=== PATIENT | male | born 1965 | race Caucasian/White ===

== ENCOUNTER 2016-12-22 10:00 | Day surgery (SDC) | payer OTHER ==
[2016-12-21 09:28] LABS: HEMOGLOBIN 16.1 g/dL (13.7-18.0); WHITE BLOOD COUNT 6.6 x10^3/uL (3.4-10)
[2016-12-21 09:41] LABS: ASPARTATE AMINO TRANSFERASE 15 U/L (15-37); BLOOD UREA NITROGEN 23 mg/dL (7-18)
[~2016-12-22] VITALS: Ht 205.7 cm; Wt 125.0 kg
[~2016-12-22 10:00] MED LIST: AMIO200T7 PO; ASPI-496 PO; ATENOLOL PO; CALCIUM PO; CLOP75TA PO; MULT-412 PO; SIMV40TA3 PO; WARF5TAB7 PO
[2016-12-22] MEDS ORDERED: FENTANYL PF 100 MCG/2ML ONE (12:02)
[2016-12-22] MEDS ORDERED: MIDAZOLAM 1 MG/ML, 5ML ONE (12:02)
== END 2016-12-22 14:22 | disposition home or self-care (01) ==
LOC: CACL 10:00
PROVIDERS: ATTEND Internal Medicine Cardiovascular Disease
DX: I48.91 Unspecified atrial fibrillation (principal); I10 Essential (primary) hypertension; E78.5 Hyperlipidemia, unspecified; G47.33 Obstructive sleep apnea (adult) (pediatric); Z79.01 Long term (current) use of anticoagulants
CPT/HCPCS: 36415; 71020; 80053; 80061; 84436; 84443; 84481; 85025; 85610; 92960; 93005; 99156; 99157; J2250; J3010

== ENCOUNTER → 2017-01-18 | Outpatient (CLI) | payer OTHER | END | disposition home or self-care (01) | LOC: CVU 13:07 | PROVIDERS: ATTEND Nurse Practitioner Family | DX: I05.0 Rheumatic mitral stenosis (principal); I31.3 Pericardial effusion (noninflammatory); Q87.40 Marfan syndrome, unspecified; Z95.2 Presence of prosthetic heart valve | CPT/HCPCS: 93306 ==

== ENCOUNTER → 2018-07-01 | Outpatient (CLI) | payer OTHER ==
[~2018-07-01] MED LIST changes: +WARF-36 PO; -WARF5TAB7 PO
== END | disposition home or self-care (01) ==
LOC: CVU 09:33
PROVIDERS: ATTEND Internal Medicine Cardiovascular Disease
DX: I08.2 Rheumatic disorders of both aortic and tricuspid valves (principal); I10 Essential (primary) hypertension; E78.5 Hyperlipidemia, unspecified; Z95.2 Presence of prosthetic heart valve
CPT/HCPCS: 93306

== ENCOUNTER 2018-09-15 20:29 | Emergency (ER) | payer OTHER ==
[~2018-09-15] VITALS: Ht 203.2 cm; Wt 131.9 kg
[2018-09-15] MEDS ORDERED: OMNIPAQUE 350 MG/ML, 100ML BOTTLE ONE (21:00)
[2018-09-15 21:10] LABS: BASOPHILS # (AUTO) 0.01 x10^3/uL (0-0.1); BASOPHILS % (AUTO) 0 % (0-1); EOSINOPHILS # (AUTO) 0.22 x10^3/uL (0-0.4); EOSINOPHILS % (AUTO) 5 % (1-7); LYMPHOCYTES # (AUTO) 0.94 x10^3/uL (1-3.4); LYMPHOCYTES % (AUTO) 21 % (22-44); MD NO; MEAN CORPUSCULAR HGB CONC 33.1 g/dL (33.2-36.2); MEAN CORPUSCULAR VOLUME 90.5 fL (81-97); MEAN PLATELET VOLUME 8.2 fL (7.4-10.4); MONOCYTES # (AUTO) 0.42 x10^3/uL (0.2-0.8); MONOCYTES % (AUTO) 9 % (2-9); NEUTROPHILS # (AUTO) 2.99 x10^3/uL (1.8-6.8); NEUTROPHILS % (AUTO) 65 % (42-75); PLATELET COUNT 224 x10^3/uL (130-400); RED BLOOD COUNT 4.81 x10^6/uL (4.38-5.82); RED CELL DISTRIBUTION WIDTH 14.5 % (9.4-14.8)
[2018-09-15 21:20] LABS: INTERNATIONAL NORMALIZED RATIO 3.16 (0.93-1.1); PROTHROMBIN TIME 31.7 Seconds (9.6-11.5)
[2018-09-15 21:23] LABS: CHLORIDE 107 mmol/L (98-107)
[2018-09-15 21:24] LABS: ALANINE AMINOTRANSFERASE 32 U/L (12-78); ALBUMIN 3.9 g/dL (3.4-5.0); ANION GAP 8 mmol/L (5-15); CALCIUM 8.5 mg/dL (8.5-10.1); CREATININE 1.13 mg/dL (0.7-1.3)
[2018-09-15 21:28] LABS: ALKALINE PHOSPHATASE 72 U/L (45-117); BILIRUBIN,TOTAL 0.2 mg/dL (0.2-1.0); TROPONIN I < 0.015 ng/mL (0.000-0.045)
[2018-09-15 23:38] VITALS: BP 126/75
== END 2018-09-15 23:40 | disposition home or self-care (01) ==
LOC: ED 21:14 → UNDOADMIN 22:50 → EDIP 22:50 → ED 23:40
DX: I66.29 Occlusion and stenosis of unspecified posterior cerebral artery (principal); R20.2 Paresthesia of skin
CPT/HCPCS: 36415; 70450; 70496; 70498; 80053; 84484; 85025; 85610; 93005; 99284; Q9967

== ENCOUNTER 2018-10-03 12:08 | Outpatient (CLI) | payer OTHER ==
[2018-10-03] MEDS ORDERED: OMNIPAQUE 350 MG/ML, 100ML BOTTLE ONE (15:31)
== END 2018-10-03 23:59 | disposition home or self-care (01) ==
LOC: CFH 12:08
PROVIDERS: ATTEND Internal Medicine
DX: I71.2 Thoracic aortic aneurysm, without rupture (principal)
CPT/HCPCS: 71275; Q9967

== ENCOUNTER 2018-12-12 14:32 | Outpatient (CLI) | payer OTHER | END 2018-12-12 23:59 | disposition home or self-care (01) | LOC: CVU 14:32 | PROVIDERS: ATTEND Internal Medicine Cardiovascular Disease | DX: I08.3 Combined rheumatic disorders of mitral, aortic and tricuspid valves (principal); I11.9 Hypertensive heart disease without heart failure | CPT/HCPCS: 93306 ==

== ENCOUNTER 2019-02-14 17:17 | Emergency (ER) | payer OTHER ==
[~2019-02-14] VITALS: Ht 205.7 cm; Wt 127.7 kg
[2019-02-14] MEDS ORDERED: SODIUM CHLORIDE FLUSH 10ML SYR IVF ONE (17:30)
[2019-02-14 17:48] LABS: BASOPHILS # (AUTO) 0.02 x10^3/uL (0-0.1); BASOPHILS % (AUTO) 0 % (0-1); EOSINOPHILS # (AUTO) 0.18 x10^3/uL (0-0.4); EOSINOPHILS % (AUTO) 4 % (1-7); LYMPHOCYTES # (AUTO) 1.04 x10^3/uL (1-3.4); LYMPHOCYTES % (AUTO) 23 % (22-44); MD NO; MEAN CORPUSCULAR HGB CONC 33.1 g/dL (33.2-36.2); MEAN CORPUSCULAR VOLUME 90.7 fL (81-97); MEAN PLATELET VOLUME 8.1 fL (7.4-10.4); MONOCYTES # (AUTO) 0.56 x10^3/uL (0.2-0.8); MONOCYTES % (AUTO) 12 % (2-9); NEUTROPHILS # (AUTO) 2.81 x10^3/uL (1.8-6.8); NEUTROPHILS % (AUTO) 61 % (42-75); PLATELET COUNT 230 x10^3/uL (130-400); RED BLOOD COUNT 5.33 x10^6/uL (4.38-5.82); RED CELL DISTRIBUTION WIDTH 14.8 % (9.4-14.8)
[2019-02-14 17:59] LABS: INTERNATIONAL NORMALIZED RATIO 3.2 (0.93-1.1); PROTHROMBIN TIME 32.1 Seconds (9.6-11.5)
[2019-02-14 18:00] LABS: ALANINE AMINOTRANSFERASE 27 U/L (12-78); ALBUMIN 4.1 g/dL (3.4-5.0); ANION GAP 4 mmol/L (5-15); CALCIUM 8.7 mg/dL (8.5-10.1); CHLORIDE 110 mmol/L (98-107); CREATININE 1.17 mg/dL (0.7-1.3)
--- NOTE | 2019-02-14 18:00 | NUR ---
PRESENT WITH FEELING OF PALPITTIONS X 18 HOURS. REPORTS HX OF AFIB WITH NEED FOR CHEMICAL AND ELECTRICAL CARDIOVERSION. tOOK PM DOSE OF ATENOLOL/AMIODARONE AND COUMADIN. APPEARS WELL. HR IRREGULAR BUT RATE 70-85. B/P WNL. DENIES SOB/NAUSEA. ONLY REPORTS IRREGULAR PALPITATIONS PROVIDER TO BEDSIDE. TO AVOID PIV RATE CONTROLLED AND PATIENT ALREADY ON CORRECT MEDICATIONS. 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
[2019-02-14 18:04] LABS: ALKALINE PHOSPHATASE 80 U/L (45-117); BILIRUBIN,TOTAL 0.4 mg/dL (0.2-1.0); TOTAL PROTEIN 7.6 g/dL (6.4-8.2); TROPONIN I < 0.015 ng/mL (0.000-0.045)
--- NOTE | 2019-02-14 18:08 | NUR ---
REPORT TO TONIA NICOLAS FOR LUNCH COVERAGE
[2019-02-14] MEDS ORDERED: PROPOFOL 10 MG/ML, 20ML IVPush ONE (18:30)
[2019-02-14] MEDS ORDERED: ONDANSETRON 2MG/ML, 2ML ONE (19:02)
[2019-02-14] MEDS ORDERED: PROPOFOL 10 MG/ML, 20ML ONE (19:02)
--- NOTE | 2019-02-14 19:14 | NUR ---
post cardioversion ecg obtained
[2019-02-14] MEDS ORDERED: ONDANSETRON 2MG/ML, 2ML IVPush ONE (19:30)
[2019-02-14 20:00] VITALS: BP 122/61
--- NOTE | 2019-02-14 20:03 | NUR ---
TASK RN, ASSISTING PRIMARY WITH DISCHARGE. PT DISCHARGED HOME WITH FAMILY, ALL QUESTIONS ANSWERED.
== END 2019-02-14 20:04 | disposition home or self-care (01) ==
LOC: ED 20:00
DX: I48.0 Paroxysmal atrial fibrillation (principal); I48.91 Unspecified atrial fibrillation; Z86.73 Personal history of transient ischemic attack (TIA), and cerebral infarction without residual deficits
CPT/HCPCS: 36415; 71045; 80053; 84443; 84484; 85025; 85610; 85730; 92960; 93005; 99152; 99285; J2405; J2704

== ENCOUNTER 2019-03-22 11:17 | Inpatient (IN) | payer OTHER ==
[~2019-03-22] VITALS: Ht 205.7 cm; Wt 125.4 kg
--- NOTE | 2019-03-22 11:58 | NUR ---
PT A&OX4, RESPE EVEN & UNLABORED, SPEECH CLEAR. STATES HE'S HERE TO SEE IF HE'S RETAINING FLUID, UNABLE TO DO HOME SPIROMETER WELL A FEW DAYS AGO. STATUS POST AORTIC VALVE REPLACEMENT (03/12/2019). SUTURES PRESENT, EDGES APPROXIMATED, NO DISCHARGE. DIFFUSE ECCHYMOSIS R/T SURGERY. DENIES SUTURE SITE PAIN, SOB, DYSPNEA, COUGH. C/O RT LAT RIB PAIN W/ DEEP BREATHING, STARTED AFTER SURGERY. PROTRUDING ABD HERNIA NOTED.
[2019-03-22] MEDS ORDERED: SODIUM CHLORIDE FLUSH 10ML SYR IVF ONE (12:00)
[2019-03-22 12:08] LABS: BASOPHILS # (AUTO) 0.04 x10^3/uL (0-0.1); BASOPHILS % (AUTO) 1 % (0-1); EOSINOPHILS # (AUTO) 0.18 x10^3/uL (0-0.4); EOSINOPHILS % (AUTO) 3 % (1-7); LYMPHOCYTES # (AUTO) 0.67 x10^3/uL (1-3.4); LYMPHOCYTES % (AUTO) 11 % (22-44); MD NO; MEAN CORPUSCULAR HEMOGLOBIN 29.4 pg (27.5-34.5); MEAN CORPUSCULAR HGB CONC 32.2 g/dL (33.2-36.2); MEAN CORPUSCULAR VOLUME 91.2 fL (81-97); MEAN PLATELET VOLUME 7.5 fL (7.4-10.4); MONOCYTES % (AUTO) 13 % (2-9); NEUTROPHILS # (AUTO) 4.65 x10^3/uL (1.8-6.8); NEUTROPHILS % (AUTO) 73 % (42-75); PLATELET COUNT 390 x10^3/uL (130-400); RED BLOOD COUNT 3.17 x10^6/uL (4.38-5.82); RED CELL DISTRIBUTION WIDTH 15.3 % (9.4-14.8)
--- NOTE | 2019-03-22 12:14 | NUR ---
EKG DONE, LABS WERE DRAWN.
[2019-03-22 12:19] LABS: INTERNATIONAL NORMALIZED RATIO 1.38 (0.93-1.1); PROTHROMBIN TIME 14.3 Seconds (9.6-11.5)
[2019-03-22 12:26] LABS: ALANINE AMINOTRANSFERASE 22 U/L (12-78); ALBUMIN 3.1 g/dL (3.4-5.0); ANION GAP 4 mmol/L (5-15); CALCIUM 8.5 mg/dL (8.5-10.1); CHLORIDE 101 mmol/L (98-107); CREATININE 1.17 mg/dL (0.7-1.3)
[2019-03-22 12:29] LABS: ALKALINE PHOSPHATASE 77 U/L (45-117); BILIRUBIN,TOTAL 0.9 mg/dL (0.2-1.0); TOTAL PROTEIN 6.7 g/dL (6.4-8.2)
[2019-03-22] MEDS ORDERED: ENOXAPARIN 120MG/0.8ML SQ ONE (13:00)
[2019-03-22] MEDS ORDERED: FUROSEMIDE 40 MG/4 ML IV ONE (13:00)
[2019-03-22] MEDS ORDERED: FUROSEMIDE 40 MG/4 ML ONE (13:11)
--- NOTE | 2019-03-22 13:11 | NUR ---
PT REPORT TO FIDENCIO TRUJILLO. PT CARE TRANSFERRED.
[2019-03-22] MEDS ORDERED: METO25TA35 PO (13:31)
[2019-03-22] MEDS ORDERED: ATOR-2 PO (13:31)
[2019-03-22] MEDS ORDERED: WARF3TAB52 PO (13:31)
[2019-03-22] MEDS ORDERED: DIGO125T PO (13:31)
[2019-03-22] MEDS ORDERED: TRAM50TA2 PO (13:32)
--- NOTE | 2019-03-22 13:36 | NUR ---
RECEIVED REPORT FROM FIDENCIO CASEY. PT RESTING ON [facility] [place]. PIV INITIATED. MEDICATED PER JUN.
--- NOTE | 2019-03-22 13:55 | NUR ---
REPORT GIVEN TO SAMM CABELLO RN. ALL QUESTIONS ANSWERED. AWAITING PT TRANSPORT.
[2019-03-22] MEDS ORDERED: MAGNESIUM HYDROXIDE 8%, 30ML UDC PO PRN (15:00)
[2019-03-22] MEDS ORDERED: LACTULOSE 20 GM/30 ML UDC PO PRN (15:00)
[2019-03-22] MEDS ORDERED: ONDANSETRON 2MG/ML, 2ML IVPush PRN (15:00)
[2019-03-22] MEDS ORDERED: ACETAMINOPHEN 325 MG TABLET PO PRN (15:00)
[2019-03-22] MEDS ORDERED: ONDANSETRON ODT 4 MG PO PRN (15:00)
[2019-03-22] MEDS ORDERED: HEPARIN 25,000 UNITS/500ML PMX 500 ML IV PRN (16:00)
[2019-03-22] MEDS ORDERED: HEPARIN 5,000 UNITS/ML, 1ML IV PRN (16:00)
[2019-03-22] MEDS ORDERED: WARFARIN 5 MG TABLET PO-COUM ONE (17:00)
[2019-03-22] MEDS ORDERED: ENOXAPARIN 120MG/0.8ML SQ SCH (18:00)
[2019-03-22 19:28] VITALS: BP 99/61
[2019-03-22] MEDS: ATORVASTATIN 20 MG TABLET PO SCH (20:22)
[2019-03-22] MEDS: HEPARIN 25,000 UNITS/500ML PMX 500 ML IV PRN (22:11)
[2019-03-23 00:50] VITALS: BP 97/65
[2019-03-23 04:36] LABS: BASOPHILS # (AUTO) 0.02 x10^3/uL (0-0.1); BASOPHILS % (AUTO) 0 % (0-1); EOSINOPHILS # (AUTO) 0.27 x10^3/uL (0-0.4); EOSINOPHILS % (AUTO) 4 % (1-7); LYMPHOCYTES # (AUTO) 0.87 x10^3/uL (1-3.4); LYMPHOCYTES % (AUTO) 12 % (22-44); MD NO; MEAN CORPUSCULAR HEMOGLOBIN 30.3 pg (27.5-34.5); MEAN CORPUSCULAR VOLUME 91.7 fL (81-97); MEAN PLATELET VOLUME 7.8 fL (7.4-10.4); MONOCYTES # (AUTO) 0.73 x10^3/uL (0.2-0.8); MONOCYTES % (AUTO) 10 % (2-9); NEUTROPHILS # (AUTO) 5.39 x10^3/uL (1.8-6.8); NEUTROPHILS % (AUTO) 74 % (42-75); PLATELET COUNT 363 x10^3/uL (130-400); RED BLOOD COUNT 2.96 x10^6/uL (4.38-5.82); RED CELL DISTRIBUTION WIDTH 15.5 % (9.4-14.8)
[2019-03-23 04:45] LABS: INTERNATIONAL NORMALIZED RATIO 1.53 (0.93-1.1); PROTHROMBIN TIME 15.8 Seconds (9.6-11.5)
[2019-03-23 04:46] LABS: % IRON SATURATION 19 % (20-55); ANION GAP 5 mmol/L (5-15); CALCIUM 8.1 mg/dL (8.5-10.1); CHLORIDE 100 mmol/L (98-107); CREATININE 1.11 mg/dL (0.7-1.3); IRON LEVEL 36 mcg/dL (65-175); TOTAL IRON BINDING CAPACITY 190 mcg/dL (250-450)
[2019-03-23] MEDS: HEPARIN 5,000 UNITS/ML, 1ML IV PRN (05:06)
[2019-03-23 06:24] VITALS: BP 100/61
[2019-03-23] MEDS: METOPROLOL SUCCINATE 25 MG TAB.ER.24H PO SCH (06:25)
[2019-03-23 06:41] VITALS: BP 104/67
[2019-03-23] MEDS ORDERED: AMIODARONE 200 MG TABLET PO SCH (09:00)
[2019-03-23] MEDS: FUROSEMIDE 20 MG/2 ML IV SCH (10:03)
[2019-03-23] MEDS: ASPIRIN 81 MG TABLET EC PO SCH (10:04)
[2019-03-23] MEDS: DIGOXIN 0.125 MG TABLET PO SCH (10:04)
[2019-03-23] MEDS: SENNA/DOCUSATE TABLET PO SCH (10:04)
[2019-03-23] MEDS: POTASSIUM CHLORIDE 20 MEQ TAB.ER.PRT PO SCH (13:24)
[2019-03-23 13:34] VITALS: BP 93/53
[2019-03-23] MEDS: HEPARIN 25,000 UNITS/500ML PMX 500 ML IV PRN (17:41)
[2019-03-23] MEDS ORDERED: WARFARIN 5 MG TABLET PO-COUM ONE (18:00)
[2019-03-23 19:39] VITALS: BP 103/66
[2019-03-23] MEDS: ATORVASTATIN 20 MG TABLET PO SCH (20:11)
[2019-03-24 02:18] VITALS: BP 113/67
[2019-03-24 05:24] LABS: INTERNATIONAL NORMALIZED RATIO 1.58 (0.93-1.1); PROTHROMBIN TIME 16.3 Seconds (9.6-11.5)
[2019-03-24] MEDS: METOPROLOL SUCCINATE 25 MG TAB.ER.24H PO SCH (06:12)
[2019-03-24] MEDS: HEPARIN 5,000 UNITS/ML, 1ML IV PRN ×2 (06:12→19:57)
[2019-03-24 07:02] VITALS: BP 96/60
[2019-03-24] MEDS: DIGOXIN 0.125 MG TABLET PO SCH (08:51)
[2019-03-24] MEDS: SENNA/DOCUSATE TABLET PO SCH (08:51)
[2019-03-24] MEDS: POTASSIUM CHLORIDE 20 MEQ TAB.ER.PRT PO SCH (08:51)
[2019-03-24] MEDS: ASPIRIN 81 MG TABLET EC PO SCH (08:51)
[2019-03-24] MEDS: FUROSEMIDE 20 MG/2 ML IV SCH (08:53)
[2019-03-24] MEDS: AMIODARONE 200 MG TABLET PO SCH (08:55)
[2019-03-24] MEDS: HEPARIN 25,000 UNITS/500ML PMX 500 ML IV PRN (12:40)
[2019-03-24 12:48] VITALS: BP 104/68
[2019-03-24 14:40] LABS: CHLORIDE 98 mmol/L (98-107)
[2019-03-24 15:02] LABS: ANION GAP 7 mmol/L (5-15); CALCIUM 8.4 mg/dL (8.5-10.1); CREATININE 1.09 mg/dL (0.7-1.3)
[2019-03-24] MEDS ORDERED: POTASSIUM CHLORIDE 20 MEQ TAB.ER.PRT ONE (16:08)
[2019-03-24] MEDS ORDERED: POTASSIUM CHLORIDE 20 MEQ TAB.ER.PRT PO ONE (16:30)
[2019-03-24] MEDS ORDERED: WARFARIN 3 MG TABLET PO-COUM ONE (18:00)
[2019-03-24 18:53] VITALS: BP 97/61
[2019-03-24] MEDS: ATORVASTATIN 20 MG TABLET PO SCH (21:03)
[2019-03-25] VITALS (7 sets, daily range): BP systolic 97–162; BP diastolic 55–112
[2019-03-25 02:52] LABS: INTERNATIONAL NORMALIZED RATIO 1.69 (0.93-1.1); PROTHROMBIN TIME 17.4 Seconds (9.6-11.5)
[2019-03-25 02:58] LABS: CHLORIDE 101 mmol/L (98-107)
[2019-03-25 03:01] LABS: ANION GAP 6 mmol/L (5-15); CALCIUM 8.5 mg/dL (8.5-10.1); CREATININE 1.15 mg/dL (0.7-1.3)
[2019-03-25] MEDS: HEPARIN 25,000 UNITS/500ML PMX 500 ML IV PRN (03:18)
[2019-03-25] MEDS: METOPROLOL SUCCINATE 25 MG TAB.ER.24H PO SCH ×2 (06:00→21:19)
[2019-03-25] MEDS ORDERED: POTASSIUM CHLORIDE 20 MEQ TAB.ER.PRT PO SCH (08:00)
[2019-03-25] MEDS: DIGOXIN 0.125 MG TABLET PO SCH (09:40)
[2019-03-25] MEDS: ASPIRIN 81 MG TABLET EC PO SCH (09:40)
[2019-03-25] MEDS: FUROSEMIDE 20 MG TABLET PO SCH (09:44)
[2019-03-25] MEDS: POTASSIUM CHLORIDE 20 MEQ TAB.ER.PRT PO SCH (09:45)
[2019-03-25] MEDS: SENNA/DOCUSATE TABLET PO SCH (09:45)
[2019-03-25] MEDS: AMIODARONE 200 MG TABLET PO SCH (09:45)
[2019-03-25] MEDS: SPIRONOLACTONE 25 MG TABLET PO SCH (09:45)
[2019-03-25 16:07] LABS: INTERNATIONAL NORMALIZED RATIO 1.76 (0.93-1.1); PROTHROMBIN TIME 18.1 Seconds (9.6-11.5)
[2019-03-25] MEDS ORDERED: WARFARIN 7.5 MG TABLET PO-COUM ONE (18:00)
[2019-03-25] MEDS: ATORVASTATIN 20 MG TABLET PO SCH (21:17)
[2019-03-26 00:48] VITALS: BP 122/76
[2019-03-26 01:13] VITALS: BP 104/63
[2019-03-26] MEDS: HEPARIN 25,000 UNITS/500ML PMX 500 ML IV PRN (04:13)
[2019-03-26 07:43] LABS: INTERNATIONAL NORMALIZED RATIO 2.45 (0.93-1.1); PROTHROMBIN TIME 24.9 Seconds (9.6-11.5)
[2019-03-26 07:48] LABS: ANION GAP 7 mmol/L (5-15); CALCIUM 8.3 mg/dL (8.5-10.1); CHLORIDE 103 mmol/L (98-107)
[2019-03-26 07:53] LABS: CREATININE 1.03 mg/dL (0.7-1.3)
[2019-03-26 08:31] VITALS: BP 110/67
[2019-03-26] MEDS: POTASSIUM CHLORIDE 20 MEQ TAB.ER.PRT PO SCH (09:25)
[2019-03-26] MEDS: SENNA/DOCUSATE TABLET PO SCH (09:25)
[2019-03-26] MEDS: AMIODARONE 200 MG TABLET PO SCH (09:25)
[2019-03-26] MEDS: ASPIRIN 81 MG TABLET EC PO SCH (09:25)
[2019-03-26] MEDS: SPIRONOLACTONE 25 MG TABLET PO SCH (09:26)
[2019-03-26] MEDS: FUROSEMIDE 20 MG TABLET PO SCH (09:26)
[2019-03-26] MEDS: DIGOXIN 0.125 MG TABLET PO SCH (09:26)
[2019-03-26] MEDS ORDERED: POTA20TA6 PO (11:04)
[2019-03-26] MEDS ORDERED: FURO20TA3 PO (11:04)
[2019-03-26] MEDS ORDERED: SPIR25TA PO (11:04)
== END 2019-03-26 12:18 | disposition home or self-care (01) | DRG 291 ==
LOC: ED 12:18 → EDIP 12:41 → 5SO 14:13 → DCLOUNGE 03-26 12:10
PROVIDERS: ADMIT Internal Medicine; ATTEND Internal Medicine
PROC: 5A09357 Assistance with Respiratory Ventilation, Less than 24 Consecutive Hours, Continuous Positive Airway Pressure (ICD-10-PCS; principal; 2019-03-23)
PROC: 5A09357 Assistance with Respiratory Ventilation, Less than 24 Consecutive Hours, Continuous Positive Airway Pressure (ICD-10-PCS; 2019-03-24)
PROC: 5A09357 Assistance with Respiratory Ventilation, Less than 24 Consecutive Hours, Continuous Positive Airway Pressure (ICD-10-PCS; 2019-03-25)
PROC: 5A09357 Assistance with Respiratory Ventilation, Less than 24 Consecutive Hours, Continuous Positive Airway Pressure (ICD-10-PCS; 2019-03-26)
DX: I50.31 Acute diastolic (congestive) heart failure (principal); J96.01 Acute respiratory failure with hypoxia; D68.69 Other thrombophilia; E87.1 Hypo-osmolality and hyponatremia; I48.92 Unspecified atrial flutter; J98.11 Atelectasis; D63.8 Anemia in other chronic diseases classified elsewhere; E78.5 Hyperlipidemia, unspecified; E88.09 Other disorders of plasma-protein metabolism, not elsewhere classified; I35.0 Nonrheumatic aortic (valve) stenosis; I48.0 Paroxysmal atrial fibrillation; K59.00 Constipation, unspecified; Z79.01 Long term (current) use of anticoagulants; Z86.73 Personal history of transient ischemic attack (TIA), and cerebral infarction without residual deficits; Z87.891 Personal history of nicotine dependence; Z95.2 Presence of prosthetic heart valve; Z99.81 Dependence on supplemental oxygen
CPT/HCPCS: 36415; 71045; 80048; 80053; 80162; 83540; 83550; 83735; 83880; 85025; 85520; 85610; 93005; 96372; 96374; G0378; J1644; J1650; J1940

== ENCOUNTER 2019-04-08 10:45 | Inpatient (IN) | payer OTHER ==
[~2019-04-08] VITALS: Ht 205.7 cm; Wt 115.0 kg
[~2019-04-08 10:45] MED LIST changes: +ATOR-2 PO; +DIGO125T PO; +FURO20TA3 PO; +METO25TA35 PO; +POTA20TA6 PO; +SPIR25TA PO; +TRAM50TA2 PO; +WARF3TAB52 PO
--- NOTE | 2019-04-08 10:58 | NUR ---
Patient ambulates with steady gait and balance with beside from triage to ED room. NADN. No obvious defecits observed.
[2019-04-08] MEDS ORDERED: FUROSEMIDE 40 MG/4 ML ONE (11:15)
[2019-04-08] MEDS ORDERED: SODIUM CHLORIDE FLUSH 10ML SYR IVF ONE (11:30)
[2019-04-08] MEDS ORDERED: FUROSEMIDE 40 MG/4 ML IVPush ONE (11:30)
[2019-04-08] MEDS ORDERED: SPIRONOLACTONE PO (11:43)
[2019-04-08] MEDS ORDERED: METOPROLOL SUCCINATE PO (11:43)
[2019-04-08] MEDS ORDERED: ATOR20TA PO (11:43)
[2019-04-08] MEDS ORDERED: colace PO (11:45)
[2019-04-08] MEDS ORDERED: [UNRECOGNIZED DRUG - OTHER] PO (11:45)
--- NOTE | 2019-04-08 11:48 | NUR ---
Pt states he uses CPAP at night and states she will bring it in from home. PIV established, pt connected to NIBP cuff, continous pulse ox monitor, and cardiac surgeon. Call light within reach. PIV meds given per EMAR. NADN. No needs expressed. Urinal provided to pt per request.
[2019-04-08 11:52] LABS: INTERNATIONAL NORMALIZED RATIO 3.22 (0.93-1.1); PROTHROMBIN TIME 32.3 Seconds (9.6-11.5)
[2019-04-08 11:53] LABS: BASOPHILS # (AUTO) 0.03 x10^3/uL (0-0.1); BASOPHILS % (AUTO) 1 % (0-1); EOSINOPHILS # (AUTO) 0.14 x10^3/uL (0-0.4); EOSINOPHILS % (AUTO) 2 % (1-7); LYMPHOCYTES # (AUTO) 0.44 x10^3/uL (1-3.4); LYMPHOCYTES % (AUTO) 8 % (22-44); MD NO; MEAN CORPUSCULAR HEMOGLOBIN 27.7 pg (27.5-34.5); MEAN CORPUSCULAR HGB CONC 31.5 g/dL (33.2-36.2); MEAN CORPUSCULAR VOLUME 88.2 fL (81-97); MEAN PLATELET VOLUME 8.1 fL (7.4-10.4); MONOCYTES % (AUTO) 11 % (2-9); NEUTROPHILS # (AUTO) 4.52 x10^3/uL (1.8-6.8); NEUTROPHILS % (AUTO) 79 % (42-75); PLATELET COUNT 385 x10^3/uL (130-400); RED BLOOD COUNT 3.75 x10^6/uL (4.38-5.82); RED CELL DISTRIBUTION WIDTH 17.3 % (9.4-14.8)
[2019-04-08 11:54] LABS: ALANINE AMINOTRANSFERASE 25 U/L (12-78); ALBUMIN 2.9 g/dL (3.4-5.0); ANION GAP 10 mmol/L (5-15); CALCIUM 8.6 mg/dL (8.5-10.1); CHLORIDE 104 mmol/L (98-107)
[2019-04-08 11:59] LABS: ALKALINE PHOSPHATASE 94 U/L (45-117); BILIRUBIN,TOTAL 0.7 mg/dL (0.2-1.0); CREATININE 0.82 mg/dL (0.7-1.3); TOTAL PROTEIN 7.3 g/dL (6.4-8.2); TROPONIN I < 0.015 ng/mL (0.000-0.045)
[2019-04-08 12:52] LABS: MICROSCOPIC NOT IND
[2019-04-08 12:59] LABS: CULTURE INDICATED? NO
[2019-04-08] MEDS ORDERED: ACETAMINOPHEN 325 MG TABLET PO PRN (13:30)
[2019-04-08] MEDS ORDERED: PROMETHAZINE 25 MG/ML, 1ML IM PRN (13:30)
[2019-04-08] MEDS ORDERED: ONDANSETRON 2MG/ML, 2ML IVPush PRN (13:30)
[2019-04-08] MEDS ORDERED: LABETALOL 5MG/ML, 20ML IVPush PRN (13:30)
[2019-04-08] MEDS ORDERED: hydrALAzine 20 MG/ML, 1ML IVPush PRN (13:30)
--- NOTE | 2019-04-08 14:03 | NUR ---
Provided report to FIDENCIO Altman. All questions answered. Pt ready to transfer to floor from ED. NADN. No needs expressed.
[2019-04-08 14:09] LABS: TROPONIN I < 0.015 ng/mL (0.000-0.045)
[2019-04-08 14:41] VITALS: BP 128/81
--- NOTE | 2019-04-08 14:48 | NUR ---
Pt transfered from ED to floor and left with all personal belongings. NADN. No needs expressed.
[2019-04-08] MEDS ORDERED: SODIUM CHLORIDE 0.9% 1,000 ML IV ONE (15:00)
[2019-04-08 17:47] VITALS: BP 128/81
[2019-04-08] MEDS: FUROSEMIDE 40 MG/4 ML IV SCH (17:49)
[2019-04-08] MEDS ORDERED: WARFARIN 1 MG TABLET PO-COUM ONE (18:00)
[2019-04-08 18:27] VITALS: BP 124/75
[2019-04-08 19:32] VITALS: BP 120/74
[2019-04-08 19:47] LABS: TROPONIN I < 0.015 ng/mL (0.000-0.045)
[2019-04-08] MEDS: AMOXICILLIN/CLAV 875-125MG TABLET PO SCH (20:04)
[2019-04-08] MEDS: ATORVASTATIN 20 MG TABLET PO SCH (20:05)
[2019-04-08] MEDS: METOPROLOL SUCCINATE 25 MG TAB.ER.24H PO SCH (20:06)
[2019-04-09 00:26] VITALS: BP 112/64
[2019-04-09 04:11] LABS: TROPONIN I < 0.015 ng/mL (0.000-0.045)
[2019-04-09] MEDS: METOPROLOL SUCCINATE 25 MG TAB.ER.24H PO SCH (06:41)
[2019-04-09 07:07] VITALS: BP 106/66
[2019-04-09 07:38] LABS: BASOPHILS # (AUTO) 0.05 x10^3/uL (0-0.1); BASOPHILS % (AUTO) 1 % (0-1); EOSINOPHILS # (AUTO) 0.32 x10^3/uL (0-0.4); EOSINOPHILS % (AUTO) 6 % (1-7); LYMPHOCYTES # (AUTO) 0.57 x10^3/uL (1-3.4); LYMPHOCYTES % (AUTO) 11 % (22-44); MD NO; MEAN CORPUSCULAR HEMOGLOBIN 27.7 pg (27.5-34.5); MEAN CORPUSCULAR HGB CONC 31.9 g/dL (33.2-36.2); MEAN CORPUSCULAR VOLUME 86.9 fL (81-97); MONOCYTES # (AUTO) 0.72 x10^3/uL (0.2-0.8); MONOCYTES % (AUTO) 14 % (2-9); NEUTROPHILS # (AUTO) 3.47 x10^3/uL (1.8-6.8); NEUTROPHILS % (AUTO) 68 % (42-75); PLATELET COUNT 412 x10^3/uL (130-400); RED BLOOD COUNT 3.56 x10^6/uL (4.38-5.82); RED CELL DISTRIBUTION WIDTH 17.2 % (9.4-14.8)
[2019-04-09 07:43] LABS: INTERNATIONAL NORMALIZED RATIO 2.96 (0.93-1.1); PROTHROMBIN TIME 29.8 Seconds (9.6-11.5)
[2019-04-09 07:48] LABS: ALANINE AMINOTRANSFERASE 23 U/L (12-78); ALBUMIN 2.7 g/dL (3.4-5.0); ANION GAP 7 mmol/L (5-15); CALCIUM 8.8 mg/dL (8.5-10.1); CHLORIDE 102 mmol/L (98-107); CREATININE 0.86 mg/dL (0.7-1.3)
[2019-04-09 07:50] LABS: ALKALINE PHOSPHATASE 86 U/L (45-117); BILIRUBIN,TOTAL 0.6 mg/dL (0.2-1.0); TOTAL PROTEIN 6.8 g/dL (6.4-8.2)
[2019-04-09] MEDS ORDERED: AMIODARONE 200 MG TABLET PO SCH (09:00)
[2019-04-09] MEDS: AMOXICILLIN/CLAV 875-125MG TABLET PO SCH (09:02)
[2019-04-09] MEDS: DIGOXIN 0.125 MG TABLET PO SCH (09:02)
[2019-04-09] MEDS: MULTIVITAMIN 1 TABLET PO SCH (09:03)
[2019-04-09] MEDS: FUROSEMIDE 40 MG/4 ML IV SCH ×3 (09:05→20:23)
[2019-04-09] MEDS ORDERED: POTASSIUM CHLORIDE 20 MEQ TAB.ER.PRT PO ONE (10:30)
[2019-04-09] MEDS ORDERED: PROPOFOL 10 MG/ML, 20ML ONE (12:15)
[2019-04-09 13:00] VITALS: BP 111/73
[2019-04-09] MEDS ORDERED: AMIODARONE 150 MG in DEXTROSE 5% 100 ML IV ONE ×2 (13:00)
[2019-04-09] MEDS ORDERED: FILTER 0.22 MICRON FOR AMIODARONE IV PRN (13:00)
[2019-04-09] MEDS: SPIRONOLACTONE 25 MG TABLET PO SCH (13:12)
[2019-04-09] MEDS ORDERED: LIDOCAINE 1%, 10ML ONE (13:39)
[2019-04-09] MEDS ORDERED: WARFARIN 2 MG TABLET PO-COUM ONE (18:00)
[2019-04-09 19:07] VITALS: BP 116/75
[2019-04-09] MEDS: ATORVASTATIN 20 MG TABLET PO SCH (20:24)
[2019-04-09] MEDS: AMIODARONE 200 MG TABLET PO SCH (20:25)
[2019-04-10 03:20] VITALS: BP 107/55
[2019-04-10] MEDS: METOPROLOL SUCCINATE 25 MG TAB.ER.24H PO SCH (06:08)
[2019-04-10 06:09] LABS: BASOPHILS # (AUTO) 0.03 x10^3/uL (0-0.1); BASOPHILS % (AUTO) 1 % (0-1); EOSINOPHILS # (AUTO) 0.38 x10^3/uL (0-0.4); EOSINOPHILS % (AUTO) 8 % (1-7); LYMPHOCYTES # (AUTO) 0.71 x10^3/uL (1-3.4); LYMPHOCYTES % (AUTO) 15 % (22-44); MD NO; MEAN CORPUSCULAR HEMOGLOBIN 27.1 pg (27.5-34.5); MEAN CORPUSCULAR HGB CONC 31.6 g/dL (33.2-36.2); MEAN CORPUSCULAR VOLUME 85.9 fL (81-97); MEAN PLATELET VOLUME 7.2 fL (7.4-10.4); MONOCYTES # (AUTO) 0.74 x10^3/uL (0.2-0.8); MONOCYTES % (AUTO) 16 % (2-9); NEUTROPHILS # (AUTO) 2.85 x10^3/uL (1.8-6.8); NEUTROPHILS % (AUTO) 61 % (42-75); PLATELET COUNT 454 x10^3/uL (130-400); RED BLOOD COUNT 3.86 x10^6/uL (4.38-5.82); RED CELL DISTRIBUTION WIDTH 17.5 % (9.4-14.8)
[2019-04-10 06:14] LABS: INTERNATIONAL NORMALIZED RATIO 4.23 (0.93-1.1)
[2019-04-10 06:40] LABS: ANION GAP 5 mmol/L (5-15); CALCIUM 8.9 mg/dL (8.5-10.1); CHLORIDE 101 mmol/L (98-107); CREATININE 1.02 mg/dL (0.7-1.3)
[2019-04-10 07:55] VITALS: BP 123/62
[2019-04-10] MEDS ORDERED: SENNA/DOCUSATE TABLET PO PRN (09:00)
[2019-04-10] MEDS ORDERED: POLYETHYLENE GLYCOL 17 GM PACKET PO PRN (09:00)
[2019-04-10] MEDS: DIGOXIN 0.125 MG TABLET PO SCH (09:00)
[2019-04-10] MEDS: AMIODARONE 200 MG TABLET PO SCH (10:43)
[2019-04-10] MEDS: FUROSEMIDE 40 MG/4 ML IV SCH (10:44)
[2019-04-10] MEDS: SPIRONOLACTONE 25 MG TABLET PO SCH (10:44)
[2019-04-10] MEDS: MULTIVITAMIN 1 TABLET PO SCH (10:44)
[2019-04-10] MEDS ORDERED: POTASSIUM CHLORIDE 20 MEQ TAB.ER.PRT PO SCH (11:00)
[2019-04-10] MEDS ORDERED: POTA20TA6 PO (15:50)
[2019-04-10] MEDS ORDERED: AMIO200T7 PO (15:50)
[2019-04-10] MEDS ORDERED: FURO40TA6 PO (15:50)
[2019-04-10] MEDS ORDERED: FUROSEMIDE 40 MG TABLET PO SCH (17:00)
== END 2019-04-10 17:30 | disposition home or self-care (01) | DRG 291 ==
LOC: ED 13:09 → EDIP 13:19 → 5SO 14:24 → DCLOUNGE 04-10 17:15
PROVIDERS: ADMIT Internal Medicine; ATTEND Family Medicine
PROC: B24BZZ4 Ultrasonography of Heart with Aorta, Transesophageal (ICD-10-PCS; 2019-04-09)
PROC: 0W993ZZ Drainage of Right Pleural Cavity, Percutaneous Approach (ICD-10-PCS; 2019-04-09)
PROC: 5A2204Z Restoration of Cardiac Rhythm, Single (ICD-10-PCS; principal; 2019-04-09 12:15)
PROC: 5A09357 Assistance with Respiratory Ventilation, Less than 24 Consecutive Hours, Continuous Positive Airway Pressure (ICD-10-PCS; 2019-04-10)
DX: I11.0 Hypertensive heart disease with heart failure (principal); J96.01 Acute respiratory failure with hypoxia; I50.31 Acute diastolic (congestive) heart failure; Q87.40 Marfan syndrome, unspecified; D68.69 Other thrombophilia; J91.8 Pleural effusion in other conditions classified elsewhere; J98.11 Atelectasis; I08.3 Combined rheumatic disorders of mitral, aortic and tricuspid valves; I48.0 Paroxysmal atrial fibrillation; G47.33 Obstructive sleep apnea (adult) (pediatric); D64.9 Anemia, unspecified; K59.00 Constipation, unspecified; E78.5 Hyperlipidemia, unspecified; K42.9 Umbilical hernia without obstruction or gangrene; Z95.2 Presence of prosthetic heart valve; Z86.73 Personal history of transient ischemic attack (TIA), and cerebral infarction without residual deficits; Z79.01 Long term (current) use of anticoagulants; Z79.899 Other long term (current) drug therapy; Z82.79 Family history of other congenital malformations, deformations and chromosomal abnormalities
CPT/HCPCS: 32555; 36415; 82945; 84145; 89051; 92960; 96374; 99285; J3490; 71045; 71046; 80048; 80053; 80162; 81003; 83605; 83615; 83735; 83880; 84157; 84484; 85025; 85610; 87070; 87205; 93005; 93306; 93312; 93321; 93325; G0378; J1940; J2704; J0282; J7030

== ENCOUNTER → 2019-06-26 | Outpatient (CLI) | payer OTHER ==
[~2019-06-26] MED LIST changes: +ATOR20TA PO; -DIGO125T PO; +DIGO125T85 PO; +FURO40TA6 PO; +GADOTERATE 10 MMOL/20 ML VIAL ONE; +METO25TA91 PO; +METOPROLOL SUCCINATE PO; +POTA20TA14 PO; +SIMV40TA20 PO; -SIMV40TA3 PO; +SPIR25TA5 PO; +SPIRONOLACTONE PO; +[UNRECOGNIZED DRUG - OTHER] PO; +colace PO
== END | disposition home or self-care (01) ==
LOC: CFH 09:44
PROVIDERS: ATTEND Psychiatry & Neurology Neurology
DX: I36.1 Nonrheumatic tricuspid (valve) insufficiency (principal); H53.461 Homonymous bilateral field defects, right side; I63.332 Cerebral infarction due to thrombosis of left posterior cerebral artery; I48.91 Unspecified atrial fibrillation; I50.89 Other heart failure
CPT/HCPCS: 70544; 70549; 70553; 93306; A9575